=== PATIENT | male | born 1935 | race African-American/Black ===

== ENCOUNTER 2023-07-18 12:59 | Emergency (ER) | payer OTHER ==
[~2023-07-18] VITALS: Ht 170.2 cm; Wt 60.0 kg
[2023-07-18 13:18] VITALS: O2SAT 98
[2023-07-18 14:17] LABS: BASOPHILS % 0.4 % (0.0-2.0); DIFFERENTIAL COMMENT 0; EOSINOPHILS % 0.2 % (0.0-5.0); HEMATOCRIT. 30.8 % (42.0-52.0); HEMOGLOBIN. 9.5 g/dL (14.0-18.0); LYMPHOCYTES % 14.9 % (20.0-50.0); MEAN CORPUSCULAR HEMOGLOBIN 24.5 pg (28.0-32.0); MEAN CORPUSCULAR HGB CONC 30.8 g/dL (31.0-37.0); MEAN CORPUSCULAR VOLUME 79.6 fL (80.0-94.0); MEAN PLATELET VOLUME 8.7 fl (7.4-10.4); MONOCYTES % 9.4 % (2.0-8.0); NEUTROPHILS % 75.1 % (40.0-76.0); PLATELET 263 x1000/uL (130-400); RED BLOOD CELL COUNT 3.86 mill/uL (4.7-6.1); RED CELL DISTRIBUTION WIDTH 15.3 % (11.6-14.6); WHITE BLOOD COUNT 3.4 x1000/uL (4.5-11.0)
[2023-07-18 14:24] LABS: INR 1.1; PROTHROMBIN TIME 12.1 sec (9.6-11.0)
[2023-07-18 14:35] LABS: CHLORIDE 108 mEq/L (98-107); POTASSIUM 4.2 mEq/L (3.5-5.1); SODIUM 140 mEq/L (136-145)
[2023-07-18 14:42] LABS: CARBON DIOXIDE 27 mEq/L (21-32); CREATININE 0.5 mg/dL (0.6-1.3); GLUCOSE 78 mg/dL (70-105); UREA NITROGEN BLOOD 10 mg/dL (7-21)
[2023-07-18 14:43] LABS: ALANINE AMINOTRANSFERASE 32 IU/L (13-61); ALBUMIN 2.4 g/dL (3.4-5.0); ASPARTATE AMINOTRANSFERASE 18 IU/L (15-37); BILIRUBIN TOTAL 0.3 mg/dL (0.1-1.0); CALCIUM 10.1 mg/dL (8.5-10.1); PROTEIN TOTAL 6.9 g/dL (6.0-8.3)
[2023-07-18 15:21] LABS: CLARITY URINE CLOUDY (CLEAR); COLOR URINE YELLOW (YELLOW); GLUCOSE URINE NEGATIVE (NEGATIVE); KETONES URINE NEGATIVE (NEGATIVE); LEUKOCYTE ESTERASE URINE 3+ (NEGATIVE); NITRITE URINE POSITIVE (NEGATIVE); OCCULT BLOOD URINE NEGATIVE (NEGATIVE); PROTEIN URINE NEGATIVE (NEGATIVE); SPECIFIC GRAVITY URINE 1.008 (1.005-1.030); UROBILINOGEN URINE 0.2 E.U./dL (0.2-1.0)
[2023-07-18 15:46] LABS: BACTERIA URINE 4+; RBC URINE 0-2 /hpf (0-2); SQUAMOUS EPITHELIAL CELL URINE RARE /lpf (RARE/1+); WBC URINE 25-50 /hpf (0-2)
[2023-07-18] MEDS ORDERED: CEFTRIAXONE 1GM PREMIX 50 ML IV ONE ×2 (16:30→18:15)
[2023-07-18] MEDS ORDERED: AZITHROMYCIN 500MG/250ML 250 ML IV ONE (18:15)
[2023-07-18 20:21] VITALS: BP 137/71; PULSE 95; RESP 14; TEMP 98
== END 2023-07-18 20:25 | disposition short-term general hospital (02) ==
LOC: ER 12:59
DX: N23 Unspecified renal colic (principal); E11.9 Type 2 diabetes mellitus without complications; Z86.73 Personal history of transient ischemic attack (TIA), and cerebral infarction without residual deficits; Z85.46 Personal history of malignant neoplasm of prostate; Z87.442 Personal history of urinary calculi
CPT/HCPCS: 99285; 74176; 96365; 96367; 87426; 80053; 81003; 83605; 83690; 85025; 85610; 87040; 87086; 87186; 87077; 36415; J0456; J0696; C9803